=== PATIENT | male | born 1965 | race Caucasian/White ===

== ENCOUNTER 2025-05-30 09:23 | Outpatient (CLI) | payer OTHER, SELFPAY ==
--- NOTE | 2025-05-30 09:47 | CTR_ITS ---
PROCEDURE INFORMATION: Exam: CT Right Lower Extremity With Contrast, Hip Exam date and time: 05/30/2025 10:04 AM Age: 60 years old Clinical indication: [place] a pop in right hip over a month ago, low back pain also, follow up to xray; Additional info: Right hip pain TECHNIQUE: Imaging protocol: CT of the right lower extremity with intravenous contrast was performed. Exam focused on the hip. Radiation optimization: All CT scans at this facility use at least one of these dose optimization techniques: automated exposure control; mA and/or kV adjustment per patient size (includes targeted exams where dose is matched to clinical indication); or iterative reconstruction. Contrast material: OMNI 350; Contrast volume: 100 ml; Contrast route: INTRAVENOUS (IV); COMPARISON: CR XR hip RT 2-3V wo/w pel* [id number] 05/09/2025 3:52 PM RADIATION DOSE METRICS: Total DLP (mGy-cm): 385.85 FINDINGS: Bones/joints: No fracture or dislocation is appreciated. There is mild joint space narrowing with small supra-acetabular osteophytes. Bony mineralization is normal. No blastic or lytic bony lesions are identified. No acute abnormalities are noted with regards to the right hip. Soft tissues: Normal. Urinary bladder: There is diffuse wall thickening involving the urinary bladder suspicious for a cystitis. There also appears to be enlargement of the median lobe of the prostate gland. CT/CT hip RT w con [id number] IMPRESSION: 1. Mild osteoarthritis.
[2025-05-30] MEDS: iohexol 350 mg/mL 500 mL Btl (per mL) IV (10:08)
== END 2025-05-30 09:24 | disposition home or self-care (01) ==
LOC: RAD 09:26
PROVIDERS: Family Provider Family Medicine; Visit Provider Electrodiagnostic Medicine
DX: M16.11 Unilateral primary osteoarthritis, right hip (principal); G89.29 Other chronic pain; M25.751 Osteophyte, right hip; N32.89 Other specified disorders of bladder; N40.0 Benign prostatic hyperplasia without lower urinary tract symptoms
CPT/HCPCS: 73701